=== PATIENT | female | born 1975 | race Caucasian/White ===

== ENCOUNTER 2018-04-08 09:19 | Emergency (ER) | payer BC ==
[2018-04-08] MEDS: FLUORESCEIN STRIP LEFT EYE (10:29)
== END 2018-04-08 11:29 | disposition home or self-care (01) ==
LOC: FTE 09:19
DX: H10.32 Unspecified acute conjunctivitis, left eye (principal); E03.9 Hypothyroidism, unspecified
CPT/HCPCS: 99283

== ENCOUNTER 2018-07-14 09:23 | Emergency (ER) | payer BC ==
[2018-07-14] MEDS: morphine 4 MG/ML VIAL IV (10:30)
[2018-07-14] MEDS: ONDANSETRON 4 MG INJ IV (10:30)
[2018-07-14] MEDS: SOD CHLORIDE 0.9% 1,000 ML IV (10:30)
[2018-07-14 10:32] LABS: ADD MAN DIFF? NO
[2018-07-14 10:35] LABS: BASOPHIL # 0.1 10^3/ul (0.0-0.1); BASOPHILS % 0.5 % (0.0-2.0); EOSINOPHILS # 0.1 10^3/ul (0.0-0.5); EOSINOPHILS % 0.9 % (0.0-7.0); HEMATOCRIT 37.7 % (37.0-47.0); HEMOGLOBIN 12.5 g/dl (12.0-16.0); LYMPHOCYTES # 2.8 10^3/ul (0.8-2.9); LYMPHOCYTES % 26.4 % (15.0-51.0); MEAN CORPUSCULAR HEMOGLOBIN 28.8 pg (29.0-33.0); MEAN CORPUSCULAR HGB CONC 33.2 g/dl (32.0-37.0); MEAN CORPUSCULAR VOLUME 86.9 fl (82.0-101.0); MEAN PLATELET VOLUME 11.5 fl (7.4-10.4); MONOCYTE # 0.6 10^3/ul (0.3-0.9); NEUTROPHILS % 65.9 % (39.0-77.0); PLATELET COUNT 249 10^3/UL (140-415); RED BLOOD COUNT 4.34 10^6/ul (4.20-5.40); RED CELL DISTRIBUTION WIDTH 13.2 % (11.5-14.5)
[2018-07-14 10:35] LABS: WHITE BLOOD COUNT 10.6 10^3/ul (4.8-10.8)
[2018-07-14 10:36] LABS: ADD UMIC YES; UR ASCORBIC ACID NEGATIVE (NEGATIVE); UR BILIRUBIN (Dip) NEGATIVE (NEGATIVE); UR BLOOD (Dip) 2+ mg/dL (NEGATIVE); UR CLARITY CLEAR (CLEAR); UR COLOR STRAW (YELLOW); UR GLUCOSE (Dip) NEGATIVE (NEGATIVE); UR KETONES (Dip) NEGATIVE (NEGATIVE); UR LEUKOCYTE ESTERASE (Dip) NEGATIVE Leu/ul (NEGATIVE); UR NITRITE (Dip) NEGATIVE (NEGATIVE); UR RBC 5 /HPF (0-5); UR SPECIFIC GRAVITY (Dip) 1.005 (1.003-1.030); UR SQUAMOUS EPITHELIAL CELL FEW /HPF (FEW); UR TOTAL PROTEIN (Dip) NEGATIVE (NEGATIVE); UR UROBILINOGEN (Dip) NEGATIVE (NEGATIVE); UR WBC 2 /HPF (0-5)
[2018-07-14 10:54] LABS: ALANINE AMINOTRANSFERASE 23 IU/L (13-69); ALBUMIN 4.3 g/dl (3.3-4.9); ALBUMIN/GLOBULIN RATIO 1.43; ALKALINE PHOSPHATASE 88 IU/L (42-121); AMYLASE 46 U/L (11-123); ANION GAP 8 (5-13); ASPARTATE AMINO TRANSFERASE 26 IU/L (15-46); BILIRUBIN,INDIRECT 0.5 mg/dl (0-1.1); BILIRUBIN,TOTAL 0.5 mg/dl (0.2-1.3); BLOOD UREA NITROGEN 7 mg/dl (7-20); CARBON DIOXIDE 27 mmol/L (21-31); CHLORIDE 104 mmol/L (97-110); CREATININE 0.36 mg/dl (0.44-1.00); Estimated GFR > 60 mL/min (>60); GLUCOSE 108 mg/dl (70-220); LIPASE 52 U/L (23-300); POTASSIUM 4.3 mmol/L (3.5-5.1); SODIUM 139 mmol/L (135-144); TOTAL PROTEIN 7.3 g/dl (6.1-8.1)
[2018-07-14 10:57] LABS: INR 0.88; PT RATIO 0.9
[2018-07-14 10:58] LABS: PARTIAL THROMBOPLASTIN TIME 35.7 Sec (23.0-35.0)
[2018-07-14 11:05] LABS: TROPONIN-I < 0.012 ng/ml (0.000-0.120)
[2018-07-14] MEDS: IOHEXOL 300MG/ML 150 ML BTL ×2 (11:39)
[2018-07-14] MEDS: SOD CHLORIDE 0.9% 100 ML ×2 (11:39)
[2018-07-14] MEDS: metroNIDAZOLE 500 MG/NS (PMX) 100 ML IVPB (13:59)
[2018-07-14] MEDS: CIPROFLOXACIN 400MG/D5W 200 ML IVPB (14:31)
[2018-07-14] MEDS: KETOROLAC 30 MG INJ IV (15:09)
== END 2018-07-14 17:08 | disposition home or self-care (01) ==
LOC: E/R 09:23
DX: K57.32 Diverticulitis of large intestine without perforation or abscess without bleeding (principal); N83.299 Other ovarian cyst, unspecified side; E03.9 Hypothyroidism, unspecified
CPT/HCPCS: 74177; 76830; 76856; 80053; 81001; 82150; 83690; 84484; 85025; 85610; 85730; 87086; 93005; 96361; 96365; 96366; 96368; 96375; 99285-25

== ENCOUNTER 2019-03-19 20:51 | Emergency (ER) | payer BC ==
[2019-03-19] MEDS: ONDANSETRON 4 MG INJ IV (21:27)
[2019-03-19] MEDS: SOD CHLORIDE 0.9% 1,000 ML IV (21:27)
[2019-03-19] MEDS: morphine 4 MG/ML VIAL IV (21:27)
[2019-03-19 21:28] LABS: ADD MAN DIFF? NO
[2019-03-19 21:30] LABS: BASOPHIL # 0.1 10^3/ul (0.0-0.1); BASOPHILS % 0.4 % (0.0-2.0); EOSINOPHILS # 0.2 10^3/ul (0.0-0.5); EOSINOPHILS % 0.9 % (0.0-7.0); HEMOGLOBIN 12.6 g/dl (12.0-16.0); LYMPHOCYTES # 2.7 10^3/ul (0.8-2.9); LYMPHOCYTES % 16.2 % (15.0-51.0); MEAN CORPUSCULAR HGB CONC 31.5 g/dl (32.0-37.0); MEAN CORPUSCULAR VOLUME 88.9 fl (82.0-101.0); MEAN PLATELET VOLUME 11.4 fl (7.4-10.4); MONOCYTE # 0.9 10^3/ul (0.3-0.9); NEUTROPHIL # 13.1 10^3/ul (1.6-7.5); PLATELET COUNT 310 10^3/UL (140-415); RED CELL DISTRIBUTION WIDTH 13.2 % (11.5-14.5)
[2019-03-19 21:41] LABS: ADD UMIC YES; UR ASCORBIC ACID NEGATIVE (NEGATIVE); UR BACTERIA FEW /HPF (NONE SEEN); UR BILIRUBIN (Dip) NEGATIVE (NEGATIVE); UR BLOOD (Dip) 2+ mg/dL (NEGATIVE); UR CLARITY CLEAR (CLEAR); UR COLOR YELLOW (YELLOW); UR GLUCOSE (Dip) NEGATIVE (NEGATIVE); UR KETONES (Dip) NEGATIVE (NEGATIVE); UR LEUKOCYTE ESTERASE (Dip) TRACE Leu/ul (NEGATIVE); UR NITRITE (Dip) NEGATIVE (NEGATIVE); UR RBC 12 /HPF (0-5); UR SPECIFIC GRAVITY (Dip) 1.008 (1.003-1.030); UR SQUAMOUS EPITHELIAL CELL FEW /HPF (FEW); UR TOTAL PROTEIN (Dip) NEGATIVE (NEGATIVE); UR UROBILINOGEN (Dip) NEGATIVE (NEGATIVE); UR WBC 14 /HPF (0-5)
[2019-03-19 21:49] LABS: ALANINE AMINOTRANSFERASE 23 IU/L (13-69); ALBUMIN 4.2 g/dl (3.3-4.9); ALKALINE PHOSPHATASE 104 IU/L (42-121); AMYLASE 77 U/L (11-123); ANION GAP 12 (5-13); ASPARTATE AMINO TRANSFERASE 35 IU/L (15-46); BILIRUBIN,INDIRECT 0.3 mg/dl (0-1.1); BILIRUBIN,TOTAL 0.3 mg/dl (0.2-1.3); BLOOD UREA NITROGEN 11 mg/dl (7-20); CARBON DIOXIDE 22 mmol/L (21-31); CHLORIDE 104 mmol/L (97-110); CREATININE 0.53 mg/dl (0.44-1.00); Estimated GFR > 60 mL/min (>60); GLUCOSE 109 mg/dl (70-220); INR 0.83; LIPASE 97 U/L (23-300); POTASSIUM 3.5 mmol/L (3.5-5.1); PROTIME 11.5 Sec (11.9-14.9); PT RATIO 0.9; SODIUM 138 mmol/L (135-144); TOTAL PROTEIN 7.7 g/dl (6.1-8.1)
[2019-03-19 21:50] LABS: PARTIAL THROMBOPLASTIN TIME 30.3 Sec (23.0-35.0)
[2019-03-19 22:00] LABS: TROPONIN-I < 0.012 ng/ml (0.000-0.120)
[2019-03-19] MEDS: CEFTRIAXONE 1 GM/50 ML (PMX) 50 ML IVPB (22:11)
[2019-03-19] MEDS: SOD CHLORIDE 0.9% 100 ML (22:47)
[2019-03-19] MEDS: IOHEXOL 300MG/ML 150 ML BTL (22:48)
[2019-03-19] MEDS: DIPHENHYDRAMINE 50 MG INJ IV (22:58)
[2019-03-20] MEDS: ONDANSETRON 4 MG INJ IV (00:08)
[2019-03-20] MEDS: morphine 4 MG/ML VIAL IV (00:08)
== END 2019-03-20 00:40 | disposition home or self-care (01) ==
LOC: E/R 03-20 00:40
DX: N30.00 Acute cystitis without hematuria (principal); E03.9 Hypothyroidism, unspecified; Z85.3 Personal history of malignant neoplasm of breast
CPT/HCPCS: 36415; 74177; 80053; 81001; 82150; 83690; 84484; 85025; 85610; 85730; 87086; 96374; 96375; 96376; 99285-25